=== PATIENT | male | born 1980 | race Two or more races ===

== ENCOUNTER 2021-02-08 17:04 | Emergency (ER) | payer SELFPAY ==
[~2021-02-08] VITALS: Ht 167.6 cm; Wt 90.9 kg
[2021-02-08] MEDS ORDERED: IBUPROFEN 200 MG TABLET. PO ONE (18:00)
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
[2021-02-08] MEDS ORDERED: IBUP-1007 PO (18:47)
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
[2021-02-08 19:06] VITALS: BP 128/95
== END 2021-02-08 19:06 | disposition home or self-care (01) ==
LOC: ER 17:04
DX: S09.90XA Unspecified injury of head, initial encounter (principal); R51.9 Headache, unspecified; W20.8XXA Other cause of strike by thrown, projected or falling object, initial encounter; Y93.89 Activity, other specified; Y92.61 Building [any] under construction as the place of occurrence of the external cause; Y99.0 Civilian activity done for income or pay
CPT/HCPCS: 70450; 99284-25

== ENCOUNTER 2021-02-18 17:41 | Emergency (ER) | payer SELFPAY ==
[~2021-02-18] VITALS: Ht 167.6 cm; Wt 90.9 kg
[~2021-02-18 17:41] MED LIST: IBUP-1007 PO
[2021-02-18 18:25] VITALS: BP 116/72
[2021-02-18] MEDS ORDERED: BUTA1TAB23 PO (19:29)
[2021-02-18] MEDS ORDERED: ONDA4TAB12 PO (19:29)
[2021-02-18] MEDS ORDERED: BUTALB/APAP/CAFEIN 50/325/40MG TABLET. PO ONE (19:30)
[2021-02-18] MEDS ORDERED: DEXAMETHASONE 4 MG TABLET PO ONE (19:30)
[2021-02-18] MEDS ORDERED: KETOROLAC 30 MG/ML VIAL. IM ONE (19:30)
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
== END 2021-02-18 19:34 | disposition home or self-care (01) ==
LOC: ER 17:41
DX: F07.81 Postconcussional syndrome (principal); R42 Dizziness and giddiness; R11.0 Nausea
CPT/HCPCS: 96372; 99283; J1885